=== PATIENT | female | born 2005 | race Caucasian/White ===

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

== ENCOUNTER 2023-09-16 15:56 | Outpatient (RCR) | payer OTHER, SELFPAY ==
--- NOTE | 2023-09-16 17:21 | OPREHPOC ---
Outpatient Therapy Plan of Care This is a Multidisciplinary Plan of Care that may contain components documented by all disciplines (PT, OT, and ST.) PT Problem 1 PT Problem #1 Knowledge Deficit PT Goal 1 Goal Patient to demonstrate independence with HEP Target Visit 4 PT Problem 2 PT Problem #2 Impaired Range of Motion PT Goal 1 Goal 1. Patient to demonstrate 140 deg of R knee flexion to improve ability to sit in the car for prolonged periods 2. Patient to demonstrate 15 deg of R ankle DF to improve ability to ambulate prolonged periods Target Visit 8 PT Problem 3 PT Problem #3 Impaired Strength PT Goal 1 Goal 1. Patient to demonstrate 5/5 R LE strength to improve ability to navigate stairs Target Visit 8 PT Problem 4 PT Problem #4 Impaired Functional Mobil PT Goal 1 Goal 1. Patient to navigate 1 flight of stairs with no increase of R knee pain 2. Patient to demonstrate 10 squats with no presence of R knee valgus Target Visit 8
--- NOTE | 2023-09-16 17:22 | PTOPEVAL1 ---
Assessment and note entered by Yesi Seay DPT Evaluation Information Assessment Status Evaluation Diagnosis R knee pain Onset 09/13/23 Subjective Information Patient reports that in March this year she noticed R knee pain with no injury. She reports pain has come and gone since. She reports that she plays volleyball and softball at [employer] and has pain with activity. She reports pain with stairs, walking long periods of time and sitting in a car for a long period of time. 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 Reported Pain Level Pain Score 6: Self Report Assessment PT Clinical Summary Ms. Balbuena is a 17 year old female who presents to PT with R knee pain. Patient demonstrates decreased R hip strength, decreased R LE flexibiliy and increased pain at the R knee impairing her ability to navigate steps, ambulate prolonged periods of time and sit in a vehicle for prolonged times. She would benefit from skilled PT to address impairments and return to PLOF. Plan of Care Interventions Electrical Stimulation,Gait Training,Hot Pack/Cold Pack,Manual Therapy,Mechanical Traction,Neuro Re- education,Patient/Caregiver Educati,Therapeutic Activities,Therapeutic Exercise PT Services Indicated Yes Treatment Frequency and 2x weekly for 8 visits Duration These treatments will address the objective and functional deficits as defined above. The patient will be advanced safely and appropriately in order for the patient to progress towards his/her prior level of function. Additional exercises will be introduced and as well as a comprehensive home exercise program upon discharge, if needed, ?to ensure carryover of functional gains achieved in the clinic. This treatment plan has been reviewed and agreement upon by the patient.
--- NOTE | 2023-10-11 15:43 | OPREHPOC ---
Outpatient Therapy Plan of Care This is a Multidisciplinary Plan of Care that may contain components documented by all disciplines (PT, OT, and ST.) PT Problem 1 PT Problem #1 Knowledge Deficit PT Goal 1 Goal Patient to demonstrate independence with HEP Target Visit 10 Comment updated PT Problem 2 PT Problem #2 Impaired Range of Motion PT Goal 1 Goal 1. Patient to demonstrate 140 deg of R knee flexion to improve ability to sit in the car for prolonged periods 2. Patient to demonstrate 15 deg of R ankle DF to improve ability to ambulate prolonged periods Target Visit 14 Comment progressing PT Problem 3 PT Problem #3 Impaired Strength PT Goal 1 Goal 1. Patient to demonstrate 5/5 R LE strength to improve ability to navigate stairs Target Visit 14 Comment progressing PT Problem 4 PT Problem #4 Impaired Functional Mobil PT Goal 1 Goal 1. Patient to navigate 1 flight of stairs with no increase of R knee pain 2. Patient to demonstrate 10 squats with no presence of R knee valgus Target Visit 14 Comment progressing
--- NOTE | 2023-10-11 15:43 | PTOPREEVAL ---
Assessment and note entered by Yesi Seay DPT Evaluation Information Assessment Status Re-evaluation Diagnosis R knee pain Onset 09/13/23 Subjective Information Patient reports knee is improved but stairs continue to cause pain. She reports she has not yet been able to return to ADLs at PLOF. Reported Pain Level Pain Score 3: Self Report Assessment PT Clinical Summary Ms. Balbuena has been seen for 8 visits of skilled PT. She does demonstrate improved strength and ROM of the R knee but continues to lack hip abduction strength of the R hip. She demonstrates improved stair navigation but continues to report pain with multiple steps. She would benefit from continued skilled PT to address remaining impairments and return to PLOF. Plan of Care Interventions Electrical Stimulation,Gait Training,Hot Pack/Cold Pack,Manual Therapy,Mechanical Traction,Neuro Re- education,Patient/Caregiver Educati,Therapeutic Activities,Therapeutic Exercise PT Services Indicated Yes Treatment Frequency and continue 2x weekly for 6 visits Duration These treatments will address the objective and functional deficits as defined above. The patient will be advanced safely and appropriately in order for the patient to progress towards his/her prior level of function. Additional exercises will be introduced and as well as a comprehensive home exercise program upon discharge, if needed, ?to ensure carryover of functional gains achieved in the clinic. This treatment plan has been reviewed and agreement upon by the patient.
--- NOTE | 2023-11-10 16:26 | OPREHPOC ---
Outpatient Therapy Plan of Care This is a Multidisciplinary Plan of Care that may contain components documented by all disciplines (PT, OT, and ST.) PT Problem 1 PT Problem #1 Knowledge Deficit PT Goal 1 Goal Patient to demonstrate independence with HEP Target Visit 10 Progress Met Comment . PT Problem 2 PT Problem #2 Impaired Range of Motion PT Goal 1 Goal 1. Patient to demonstrate 140 deg of R knee flexion to improve ability to sit in the car for prolonged periods 2. Patient to demonstrate 15 deg of R ankle DF to improve ability to ambulate prolonged periods Target Visit 14 Progress Met Comment . PT Problem 3 PT Problem #3 Impaired Strength PT Goal 1 Goal 1. Patient to demonstrate 5/5 R LE strength to improve ability to navigate stairs Target Visit 14 Progress Met Comment . PT Problem 4 PT Problem #4 Impaired Functional Mobil PT Goal 1 Goal 1. Patient to navigate 1 flight of stairs with no increase of R knee pain 2. Patient to demonstrate 10 squats with no presence of R knee valgus Target Visit 14 Progress Not Met Comment .
--- NOTE | 2023-11-10 16:26 | PTOPDC ---
Assessment and note entered by Yesi Seay DPT Evaluation Information Assessment Status Re-evaluation Diagnosis R knee pain Onset 09/13/23 Subjective Information Patient reports that knee has improved. She reports running has improved but stairs cause some discomfort. Pain below the knee has resolved but she has discomfort at distal quad. Reported Pain Level Pain Score 0: Self Report Assessment PT Clinical Summary Ms. Balbuena was seen for 14 visits of skilled PT with great progress towards goals. She met all goals except for stair navigation and squatting with knee valgus. She demonstrates 0-140 deg of R knee AROM as well as 5/5 strength of the R knee. She is independent with HEP and is appropriate for DC at this time. Plan of Care PT Services Indicated No
== END 2023-11-10 16:37 | disposition home or self-care (01) ==
LOC: CHSPT 15:56
PROVIDERS: PCP Family Medicine; Visit Provider Orthopaedic Surgery
DX: M70.51 Other bursitis of knee, right knee (principal)
CPT/HCPCS: 97014; 97110; 97140; 97161; G0283

== ENCOUNTER 2024-02-17 07:52 | Outpatient (CLI) | payer OTHER, SELFPAY ==
--- NOTE | ~2024-02-17 | MR_ITS ---
EXAMINATION: MR knee RT wo con DATE: 02/17/2024 09:11 INDICATION: Right knee pain TECHNIQUE: Magnetic resonance imaging (MRI) of the right knee was performed without intravenous contr ast. Sequences included coronal PD-weighted FSE, coronal PD-weighted FS FSE, sagittal T2-weighted FS E, sagittal PD-weighted FS FSE and axial PD weighted fat saturated FSE. COMPARISON: None. FINDINGS: Medial compartment: Medial meniscus is normal. Articular cartilage is normal. Lateral compartment: Lateral meniscus is normal. Articular cartilage is normal. Patellofemoral compartment: Deep chondral fissuring with minimal underlying subarticular edema-like signal change at the lateral patellar facet. Trochlear cartilage is normal. Ligaments and tendons: Anterior and posterior cruciate ligaments are normal. The medial collateral ligament and fibular melinda ateral ligament complex are normal. The extensor mechanism is normal. The visualized medial and later al hamstring tendons as well as the iliotibial band are normal. Fluid: Physiologic amount of fluid in the joint space. No loose osteochondral bodies identified. Mild prepat ellar edema without discrete bursal fluid collection. Osseous/other: Bone alignment is normal. No fracture or pathologic marrow replacing process. There is curvilinear lo w signal intensity in the subcutaneous fat at the anteromedial aspect of the knee which suggests resi dual scarring likely at the site of a prior described subcutaneous seroma and suspected Burrell Jc e lesion based on report from the prior imaging, images of which are unavailable at [facility]. IMPRESSION: 1. Deep chondral fissuring at the lateral patellar facet. Reviewed, dictated and finalized at location A.
== END 2024-02-17 07:53 | disposition home or self-care (01) ==
LOC: CHSIMG 07:54
PROVIDERS: PCP Family Medicine; Visit Provider Orthopaedic Surgery
DX: M70.51 Other bursitis of knee, right knee (principal); M25.561 Pain in right knee
CPT/HCPCS: 73721

== ENCOUNTER 2024-02-28 08:43 | Outpatient (CLI) | payer OTHER, SELFPAY | END 2024-02-28 08:44 | disposition home or self-care (01) | LOC: CHSIMG 08:45 | PROVIDERS: PCP Family Medicine; Visit Provider Orthopaedic Surgery | DX: M25.561 Pain in right knee (principal) | CPT/HCPCS: 73564 ==

== ENCOUNTER 2024-10-30 08:12 | Outpatient (CLI) | payer OTHER, SELFPAY ==
--- NOTE | ~2024-10-30 | XR_ITS ---
XR elbow RT min 3V Ordering provider: Darío Coreas MD History: . RT ELBOW PAIN,CHRONIC-WORSENING,4-5TH NUMBNESS,PAIN . Comparison: None. FINDINGS: BONES: No acute fracture or dislocation. JOINT SPACES: Normal. SOFT TISSUES: Unremarkable. No definite joint effusion. IMPRESSION: No acute osseous abnormality of the right elbow. Reviewed, dictated and finalized at location A. REGULATOR
--- OUTSIDE RECORDS SUMMARY | 2024-11-05 04:49 | XMS_ITS | Patient Health Summary ---
Author Organization [facility] Address [address] [facility] [place] [address] Care Team Providers Care Site Specialist Name Role Phone Rufina Pike MD Primary Care Provider [phone] Note from [facility],non-owned Affiliates and Associated Physician Practices is amultiple site organization consisting of ambulatory clinics and hospital sitesin [place], [place], [place] and [place]. This disclosure is being madepursuant to the Care Everywhere program and may not contain all information available regarding this patient. Last updated 18.[facility] Social History Tobacco Use Types Packs/Day Years Used Date Smoking Tobacco: Never Assessed Sex and Gender Information Value Date Recorded Sex Assigned at Not on file Gender Identity Not on file Sexual Orientation Not on file Care Teams Site Specialist Relationship Specialty Start Date End Date Rufina Pike MD [address] [facility] [address] [place] [address] PCP - General Pediatrics 06/05/15
--- OUTSIDE RECORDS SUMMARY | 2024-11-05 04:49 | XMS_ITS | Encounter Summary ---
Author Organization [facility] Address [address] [place] [address] Care Team Providers Care Light Industrial Supervisor Name Role Phone Rufina Pike MD Primary Care Provider [phone] Encounter Details Date Type Department Care Team (Late st Contact Info) Description 03/27/[address] [facility] [address] [facility] [address] Rohan Kruger MD NO ADDRESS ON FILE Social History Tobacco Use Types Packs/Day Years Used Date Smoking Tobacco: Never Assessed Sex and Gender Information Value Date Recorded Sex Assigned at Not on file Gender Identity Not on file Sexual Orientation Not on file documented as of this encounter Plan of Treatment Not on file documented as of this encounter Visit Diagnoses Not on filedocumented in this encounter Care Teams Light Industrial Supervisor Relationship Specialty Start Date End Date Rufina Pike MD [address] [facility] [facility] [address] [place] [address] PCP - General Pediatrics 02/26/11 documented as of this encounter
--- OUTSIDE RECORDS SUMMARY | 2024-11-05 04:49 | XMS_ITS | Clinical Summary ---
Author Organization [facility] Address [address] [place] [address] Phone Care Team Providers Care Bone Puller Name Role Phone Rufina Pike MD Primary Care Provider [phone] Allergies No known active allergies Medications No known medications Active Problems Problem Noted Date Diagnosed Date Unspecified disorder of skin and subcutaneous ti ssue 03/10/2011 Social History Tobacco Use Types Packs/Day Years Used Date Smoking Tobacco: Never Assessed Adolescent Education Answer Date Record ed Getting School Help Needed Not on file 06/18 Sex and Gender Information Value Date Recorded Sex Assigned at Not on file Gender Identity Not on file Sexual Orientation Not on file Last Filed Vital Signs Vital Sign Reading Time Taken Comments Blood Pressure 108/56 03/17/2011 9:08 AM CDT Pulse 87 03/17/2011 9:08 AM CDT Temperature - - Respiratory Rate 21 03/17/2011 9:08 AM CDT Oxygen Saturation 98% 03/17/2011 9:08 AM CDT Inhaled Oxygen Concentration - - Weight 29 kg (64 lb) 03/12/2011 12:39 PM CDT Height 134.6 cm (4' 5 ) 03/12/2011 12:39 PM CDT Body Mass Index 16.02 03/12/2011 12:39 PM CDT Plan of Treatment Health Maintenance Due Date Last Done Comments CHLAMYDIA SCREENING (ANNUAL) 11-24 YEARS 2014 HPV VACCINES (1 - 3-dose series) 2018 DTAP/TDAP/TD VACCINES (1 - Tdap) 2022 HEPATITIS B VACCINES (1 of 3 - 19+ 3-dose series) 2022 INFLUENZA VACCINE (#1) 2024 PNEUMOCOCCAL VACCINE 0-64 YEARS Aged Out No longer eligible based on patient's age to complete this topic Advance Directives For more information, please contact: [phone] * Full Code (Latest Code Status on File) Date Activated Date Inactivated Comments 03/17/2011 9:00 AM 03/17/2011 11:10 AM * Full Code Date Activated Date Inactivated Comments 03/17/2011 8:22 AM 03/17/2011 9:00 AM Care Teams Bone Puller Relationship Specialty Start Date End Date Rufina Pike MD [address] [place] [address] PCP - General Pediatrics 02/26/11
--- OUTSIDE RECORDS SUMMARY | 2024-11-05 04:49 | XMS_ITS | Clinical Summary ---
Author Organization [facility] Address [address] [place] [address] Care Team Providers Care Physician Practice Coordinator Name Role Phone Rufina Pike MD Primary Care Provider [phone] Source Comments [facility],non-owned Affiliates and Associated Physician Practices is amultiple site organization consisting of ambulatory clinics and hospital sitesin [place], [place], [place] and [place]. This disclosure is being madepursuant to the Care Everywhere program and may not contain all information available regarding this patient. Last updated 18.[facility] Social History Tobacco Use Types Packs/Day Years Used Date Smoking Tobacco: Never Assessed Sex and Gender Information Value Date Recorded Sex Assigned at Not on file Gender Identity Not on file Sexual Orientation Not on file Plan of Treatment Health Maintenance Due Date Last Done Comments HIV SCREENING 2018 HPV VACCINE (1 - 3-dose series) 2018 CHLAMYDIA/GONORRHEA SCREENING 2019 HEPATITIS C SCREENING 11/09/2021 DTAP/TDAP/TD VACCINES (1 - Tdap) 2022 HEPATITIS B VACCINE (1 of 3 - 19+ 3-dose series) 2022 DEPRESSION SCREENING 11/15/2023 COVID-19 VACCINE (1 - 2023-2 5 season) 2024 INFLUENZA VACCINE (#1) 2024 ZOSTER VACCINE (1 of 2) 2053 HIB VACCINE Aged Out No longer eligi ble based on patient's age to complete this topic MENINGOCOCCAL VACCINE Aged Out No theresa darryl eligible based on patient's age to complete this topic PNEUMOCOCCAL VACCINE Aged Out No long er eligible based on patient's age to complete this topic Care Teams Physician Practice Coordinator Relationship Specialty Start Date End Date Rufina Pike MD [address] [facility] [address] [place] [address] PCP - General Pediatrics 06/05/15
--- OUTSIDE RECORDS SUMMARY | 2024-11-05 04:49 | XMS_ITS | Patient Health Record ---
Author Organization [facility] Address [address] [place], [place] [address] Care Team Providers Care Cryptanalyst Name Role Phone SONI WEST Unavailable [phone] Gordon Gonzalez Unavailable Unavailable TAYLA YI Unavailable [phone] Allergies No Known Allergies Reason For Referral No Information Medications Medication SIG (Take, Route, Frequency, Duration) Notes Start Date End Date Status Imiquimod 5 % 1 application at bedtime, leave on for 8 hours then wash off Externally Three times a Week please dispense 6 packets 05/04/2024 Active Vital Signs Height-cm 167.64 cm 05/25/2024 Weight-kg 72.57 kg 05/25/2024 Height 66.00 in 05/25/2024 Weight 160 lbs 05/25/2024 BMI 25.82 kg/m2 05/25/2024 Encounters Encounter Location Date Provider Diagnosis [facility] [address] [place], [place] [id number] 05/04/2024 TAYLA YI Plantar wart B07.0 ; Pain in left foot M79.672 ; Localized edema R60.0 and Primary focal hyperhidrosis, 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 I discussed various treatment plans and answered questions. I explained that verruca treatments often require multiple treatments. Today lesions were prepped, debrided down to bleeding base with #15 blade, and then chemical cauterization solution application for the first time. Rx imiquimod. 05/04/2024 Pain in left foot (ICD-10 - M79.672) 05/25/2024 Plantar wart (ICD-10 - B07.0) no longer indicated use of imiquimod, monitor area for any changes or recurrence 05/25/2024 Pain in left foot (ICD-10 - M79.672) 05/25/2024 Localized edema (ICD-10 - R60.0) 05/04/2024 Localized edema (ICD-10 - R60.0) 05/04/2024 Primary focal hyperhidrosis, soles (ICD-10 - L74.513) Patient educated on etiology and possible outcomes related to hyperhidrosis of feet. Reviewed treatment options with patient, encouraged to begin with black tea soaks to help down regulate sweat glands in feet and aid in moisture control. 05/25/2024 Primary focal hyperhidrosis, soles (ICD-10 - L74.513) Patient educated on etiology and possible outcomes related to hyperhidrosis of feet. Reviewed treatment options with patient, encouraged to begin with black tea soaks to help down regulate sweat glands in feet and aid in moisture control. Plan Of Treatment No Information Insurance Providers Payer Name Payer Address Payer Phone Subscriber Number Group Number Insured Name Patient Relationship to Insured Coverage Start Date Coverage End Date [facility] [address] [address] [place] [address] [id number] DARRELL HDEZ Child - Insured has Financial Responsibility
--- OUTSIDE RECORDS SUMMARY | 2024-11-05 04:49 | XMS_ITS | Referral Summary ---
Author Organization [facility] Address [address] [facility] [place] [address] Care Team Providers Care Director Of Marketing And Promotions Name Role Phone Rufina Pike MD Primary Care Provider [phone] Source Comments [facility],non-owned Affiliates and Associated Physician Practices is amultiple site organization consisting of ambulatory clinics and hospital sitesin [place], [place], [place] and [place]. This disclosure is being madepursuant to the Care Everywhere program and may not contain all information available regarding this patient. Last updated 18.[facility] Social History Tobacco Use Types Packs/Day Years Used Date Smoking Tobacco: Never Assessed Sex and Gender Information Value Date Recorded Sex Assigned at Not on file Gender Identity Not on file Sexual Orientation Not on file Plan of Treatment Not on file Care Teams Director Of Marketing And Promotions Relationship Specialty Start Date End Date Rufina Pike MD [address] [facility] [address] [place] [address] PCP - General Pediatrics 06/05/15
--- OUTSIDE RECORDS SUMMARY | 2024-11-05 04:49 | XMS_ITS ---
Author Organization [facility] Address [address] [place], [place] [address] Care Team Providers Care Personal Injury Paralegal Name Role Phone SONI WEST Unavailable [phone] Gordon Gonzalez Unavailable Unavailable TAYLA YI Unavailable [phone] REASON FOR VISIT plantar wart lf sub 4th wart rx imiquimod Medications Medication SIG (Take, Route, Frequency, Duration) Notes Start Date End Date Status Imiquimod 5 % 1 application at bedtime, leave on for 8 hours then wash off Externally Three times a Week please dispense 6 packets 05/04/2024 Active Encounters Encounter Location Date Provider Diagnosis [facility] [address] [place], [place] [id number] 05/04/2024 TAYLA YI Plantar wart B07.0 ; [...] Pain in left foot (ICD-10 - M79.672) 05/04/2024 Localized edema (ICD-10 - R60.0) 05/04/2024 Primary focal hyperhidrosis, soles (ICD-10 - L74.513) Patient educated on etiology and possible outcomes related to hyperhidrosis of feet. Reviewed treatment options with patient, encouraged to begin with black tea soaks to help down regulate sweat glands in feet and aid in moisture control. Plan Of Treatment Medication Medication Name Sig Start Date Stop Date Notes Imiquimod 5 % 1 application at bed time, leave on for 8 hours then wash off Externally Three times a Week 05/04/2024 Treatment Notes Assessment Notes Plantar wart I educated the patie nt on verruca. I discussed various treatment plans and answered questions. I explained that verruca treatments often require multiple treatments. Today lesions were prepped, debrided down to bleeding base with #15 blade, and then chemical cauterization solution application for the first time. Rx imiquimod. Primary focal hyperhidrosis, soles Patie nt educated on etiology and possible outcomes related to hyperhidrosis of feet. Reviewed treatment options with patient, encouraged to begin with black tea soaks to help down regulate sweat glands in feet and aid in moisture control. Next Appt Details Follow Up: 2 Weeks, Reason: Progress Notes * MURALI HDEZOB:2004 (18 yo F)Acc No.[id number]:05/04/2024 Progress Notes Patient:LYDIA EWING Provider:FOZIA YI :2005???Age:18 Y???Sex:Female D ate:05/04/2024 Address:[address] [place] [address] Subjective: * Chief Complaints: * ???1. Plantar wart lf sub 4t h wart rx imiquimod. * HPI: ???HPI:?New Complaint?Patient presents for a new patient consultation. Patient states she has plantar wart on the bottom of her left foot, below? her 4th digit. Patient says she has had the re-curring wart for 9 years, and has had it frozen off in the past, but the wart has continued to return and is causing pain while applying pressure and wearing shoes. Patient denies any swelling or redness are the area. MA:mls.? * ROS:?General / Constitutional:?Patient denies?weakness.?Cardiovascular:?Patient denies?chest pain, history of OK, irregular heartbeat.?Musculoskeletal:?Patient denies?arthritis, joint stiffness.?Skin:?Patient complains of?warts.?Neurologic:?Patient denies?dizziness, gait abnormality, headache.? * Medical History:? Objective: * Examination: ???Physical Examination: ???Vascular: Dorsalis Pedis pulse 2/4 left foot Posterior Tibial pulse 2/4 left foot Dorsalis Pedis pulse 2/4 right foot Posterior Tibial pulse 2/4 right foot, Capillary Refill Time is noted to be less than 3 secs to ten digits, temperature gradient is warm to cool to bilateral lower extremity and pedal hair present, there are no varicosities noted to bilateral lower extremity ?Dermatologic: no open lesions, no erythema, no ecchymoses, nails cut to hygienic length, wart-like lesion noted to left foot sub fourth metatarsal head with pinpoint bleeding upon debridement as well as loss of relaxed skin tension lines ?Musculoskeletal: no pain to palpation nail plate x ten, no calf pain noted to bilateral lower extremity, arch height 3/5 non weight bearing to bilateral foot, first metatarsophalangeal joint range of motion noted to be 30 degree non weight bearing to bilateral foot, maximal tenderness to sub fourth metatarsal head left foot plantar forefoot wart like lesion with lateral compression ?Neurologic: protective sensation intact to light touch, vibratory sensation intact to first metatarsophalangeal joint bilateral foot. Assessment: * Assessment: 1.?Plantar wart - B07.0 (Mabel anastasiya)?2.?Pain in left foot - M79.672?3.?Localized edema - R60.0?4.?Primary focal hyperhidrosis, soles - L74.513? Plan: * Treatment: 2.?Primary focal hyperhidros is, soles? Notes: Patient educated on etiology and possible outcomes related to hyperhidrosis of feet. Reviewed treatment options with patient, encouraged to begin with black tea soaks to help down regulate sweat glands in feet and aid in moisture control. ?? 3.?Others? Start Imiquimod Cream, 5 %, 1 application at bedtime, leave on for 8 hours then wash off, Externally, Three times a Week please dispense 6 packets, 1, Refills 2.?? * Procedure Codes:?01117 DESTR UCT LESION, 1-14 * Follow Up:?2 Weeks * Billing Information: * Visit Code:? 38638 Office Visit, New Pt., Level 3. Modifiers: 25 * Procedure Codes:? 86738 DESTRUCT LESION, 1-14. * Sign off status: Completed true * Provider:FOZIA YI Date:?05/04/2024 Generated for Hawa peralta/Hernandez/Porter on:?11/05/2024 04:49 AM FRONT DESK REPRESENTATIVE History and Physical Notes * HPI (History of Present Illness) Category Sub-Category Detail Notes Category Not es HPI New Complaint Patient presents for a new patient consultation. Patient states she has plantar wart on the bottom of her left foot, below her 4th digit. Patient says she has had the re-curring wart for 9 years, and has had it frozen off in the past, but the wart has continued to return and is causing pain while applying pressure and wearing shoes. Patient denies any swelling or redness are the area. MA:mls Examination Category Sub-Category Detail Notes Category Not es Physical Examination Vascular: Dorsalis Pedis pulse 2/4 left foot Posterior Tibial pulse 2/4 left foot Dorsalis Pedis pulse 2/4 right foot Posterior Tibial pulse 2/4 right foot, Capillary Refill Time is noted to be less than 3 secs to ten digits, temperature gradient is warm to cool to bilateral lower extremity and pedal hair present, there are no varicosities noted to bilateral lower extremity Dermatologic: no open lesions, no erythema, no ecchymoses, nails cut to hygienic length, wart-like lesion noted to left foot sub fourth metatarsal head with pinpoint bleeding upon debridement as well as loss of relaxed skin tension lines Musculoskeletal: no pain to palpation nail plate x ten, no calf pain noted to bilateral lower extremity, arch height 3/5 non weight bearing to bilateral foot, first metatarsophalangeal joint range of motion noted to be 30 degree non weight bearing to bilateral foot, maximal tenderness to sub fourth metatarsal head left foot plantar forefoot wart like lesion with lateral compression Neurologic: protective sensation intact to light touch, vibratory sensation intact to first metatarsophalangeal joint bilateral foot
--- OUTSIDE RECORDS SUMMARY | 2024-11-05 04:49 | XMS_ITS ---
Author Organization [facility] Address [address] [place], [place] [address] Care Team Providers Care Fabricator Assembler Metal Products Name Role Phone SONI WEST Unavailable [phone] CarlosGordon Unavailable Unavailable TAYLA YI Unavailable [phone] Allergies No Known Allergies REASON FOR VISIT wart follow up Medications Medication SIG (Take, Route, Frequency, Duration) Notes Start Date End Date Status Imiquimod 5 % 1 application at bedtime, leave on for 8 hours then wash off Externally Three times a Week please dispense 6 packets 05/04/2024 Active Vital Signs Weight 160 lbs 05/25/2024 Weight-kg 72.57 kg 05/25/2024 Height 66.00 in 05/25/2024 Height-cm 167.64 cm 05/25/2024 BMI 25.82 kg/m2 05/25/2024 Encounters Encounter Location Date Provider Diagnosis [address] [id number] 05/25/2024 TAYLA YI Plantar wart B07.0 ; Pain in left foot M79.672 ; Localized edema R60.0 and Primary focal hyperhidrosis, 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 Reviewed treatment options with patient, encouraged to begin with black tea soaks to help down regulate sweat glands in feet and aid in moisture control. Plan Of Treatment Treatment Notes Assessment Notes Plantar wart no longer indicated use of imiquimod, monitor area for any changes or recurrence Primary focal hyperhidrosis, soles Patie nt educated on etiology and possible outcomes related to hyperhidrosis of feet. Reviewed treatment options with patient, encouraged to begin with black tea soaks to help down regulate sweat glands in feet and aid in moisture control. Next Appt Details Follow Up: prn, Reason: Progress Notes * FRANK HDEZHDOB:2004 (18 yo F)Acc No.[id number]:05/25/2024 Patient:?LEMUEL LYDIA Provider:?TAYLA YI :2005???Age:18 Y???Sex:Female D ate:05/25/2024 Address:[address] [place] [address] Subjective: * Chief Complaints: * ???1. Wart follow up. * HPI: ???HPI:?Follow Up Visit?Patient presents for follow up visit for plantar wart on her bottom left foot. Patient states she is not having any pain or concerns, she is having skin peeling still but states it seems to improving. MA:mls.? * ROS:?General / Constitutional:?Patient denies?weakness.?Cardiovascular:?Patient denies?chest pain, history of DC, irregular heartbeat.?Musculoskeletal:?Patient denies?arthritis, joint stiffness.?Skin:?Patient complains of?warts.?Neurologic:?Patient denies?dizziness, gait abnormality, headache.? * Medical History:? * Medications:?Taking Imiquimo d 5 % Cream 1 application at bedtime, leave on for 8 hours then wash off Externally Three times a Week please dispense 6 packets * Allergies:?N.K.D.A. Objective: * Vitals:?Wt:160lbs, Wt-k .57 kg, Ht: 66.00 in, Ht-cm: 167.64 cm, BMI:25.82Index, Body Surface Area: 1.84. * Examination: ???Physical Examination: ???Vascular: Dorsalis Pedis [...] to left foot sub fourth metatarsal head improved from prior encounter ?Musculoskeletal: no pain to palpation nail plate x ten, no calf pain noted to bilateral lower extremity, arch height 3/5 non weight bearing to bilateral foot, first metatarsophalangeal joint range of motion noted to be 30 degree non weight bearing to bilateral foot, no pain in area of prior wart like lesion sub fourth metatarsal head left foot plantar forefoot with lateral compression ?Neurologic: protective sensation intact [...] feet and aid in moisture control. ?? * Follow Up:?prn * Billing Information: * Visit Code:? 64401 Office Visit, Est Pt., Level 3. * Procedure Codes:? * Sign off status: Completed true * Provider:FOZIA YI Date:?05/25/2024 Generated for Hawa peralta/Hernandez/Porter on:?11/05/2024 04:49 AM ROD POINTER History and Physical Notes * HPI (History of Present Illness) Category Sub-Category Detail Notes Category Not es HPI Follow Up Visit Patient presents for follow up visit for plantar wart on her bottom left foot. Patient states she is not having any pain or concerns, she is having skin peeling still but states it seems to improving. MA:mls Examination Category Sub-Category Detail Notes Category [...] to left foot sub fourth metatarsal head improved from prior encounter Musculoskeletal: no pain to palpation nail plate x ten, no calf pain noted to bilateral lower extremity, arch height 3/5 non weight bearing to bilateral foot, first metatarsophalangeal joint range of motion noted to be 30 degree non weight bearing to bilateral foot, no pain in area of prior wart like lesion sub fourth metatarsal head left foot plantar forefoot with lateral compression Neurologic: protective sensation intact to light touch, vibratory sensation intact to first metatarsophalangeal joint bilateral foot
--- OUTSIDE RECORDS SUMMARY | 2024-11-05 04:50 | XMS_ITS | Encounter Summary ---
Author Organization [facility] Address [address] [place] [address] Care Team Providers Care Block Stacker Name Role Phone Rufina Pike MD Primary Care Provider [phone] Reason for Visit * Auth/Cert - Closed Specialty Diagnoses / Procedures Referred By Amanda davidson Referred To Contact General Surgery Diagnoses SUBCUTANEOUS MASS LEFT FACE Procedures MINOR PROCEDURES [facility] [place] [address] [place] [address] Referral ID Status Reason Start Date Expiration Date Visits Re quested Visits Authorized [id number] Closed 03/11/2011 09/07/2011 1 Encounter Details Date Type Department Care Team (Late st Contact Info) Description 03/17/2011 9:40 AM CDT - 03/17/2011 10:20 AM CDT Surgery [facility] Operating Room [address] [place] [address] Ethan Marroquin MD NO ADDRESS ON FILE RETIRED LOCAL HEAD FACE NECK CYST MASS LESION EXCISION Surgery Details Date/Time Status Location OR Service Patient Class Case Class Case Type Trauma Case? 03/17/2011 9:40 AM Posted [facility] OR MAIN MP1-O Plastic Surgery Surgical OP/Extended Care Elective No Panel 1 Procedure LRB Anes Op Region Wound Class Comments RETIRED LOCAL HEAD FACE NECK CYST MASS LESION EXCISION N/A Local Not Applicable EXCISION BIOPSY SUBCUTANECOUS MASS LEFT FACE Surgeon Surgeon Role Service Panel Ethan Marroquin MD Primary Plastic Surgery 1 documented in this encounter Social History Tobacco Use Types Packs/Day Years Used Date Smoking Tobacco: Never Assessed Sex and Gender Information Value Date Recorded Sex Assigned at Not on file Gender Identity Not on file Sexual Orientation Not on file documented as of this encounter Last Filed Vital Signs Vital Sign Reading [...] Mass Index 16.02 03/12/2011 12:39 PM CDT Body Mass Index Percentile 60.43% 03/12/2011 12: 39 PM CDT Growth Chart: [facility] (Girls, 2- 20 Years) documented in this encounter Discharge Instructions * Discharge Instructions* Ethan Marroquin MD - 03/17/2011 9:00 AM CDT 1. Follow-up Dr. Marroquin's office ([phone]) as needed. 2. Do NOT remove dressing or wash surgical site until Wednesday evening, March 22. Then remove steri-strip and resume normal washing. 3. No body contact activities until 3 weeks after surgery. 4. Avoid excess sun on incision site. 5. Notify Dr. Marroquin's office ([phone]) if scar begins to thicken and raise above the surface or any other concerns about the surgical site. documented in this encounter Progress Notes * Stl Scanning, [facility] - 03/17/2011 4:07 PM CDT documented in this encounter H&P Notes * Stl Scanning, [facility] - 03/17/2011 4:07 PM CDT documented in this encounter OR Notes * Gloria-OP - Yelena Bellamy RN - 03/17/2011 9:09 AM CDT Patient was discharged ambulatory in stable condition. Discharge instructions from physician reviewed with patient's mother prior to discharge and copy provided. 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 The previously placed EMLA cream was removed and the left forehead/restorationist was prepped and draped. The lesion clinically was a probable pilomatrixoma, measuring 3mm X 3 mm. It was marked for lenticular excision of skin overlying the mass. The perimeter was infiltrated with 0.8 ml of 0.25% Marcaine with 1/200,000 epinephrine. After vasoconstriction had developed, the skin was incised and the lesion was dissected from the subcutaneous tissue: it did not extend into significant anatomic structures. The specimen was removed in its entirety and sent for permanent pathology. H emostasis was secured with electrocautery. The wound was closed in several layers with 6-0 PDS suture in the subcutaneous tissue and deep dermis and with 6-0 fast gut suture for skin. The incision length was 10mm. The closed incision was dressed with Steri-strip and Mastisol. The patient tolerated the procedure well and was discharged home in good condition. There was no complication or transfusion. I personally performed this operation. * Gloria-OP - Vera Arellano RN - 03/17/2011 8:51 AM CDT 0.25% Sensorcaine with epinephrine 1:200,000 0.8 Ml injected locally per M.D. Normal saline for irrigation Sutured: 6-0 fast absorbing and 6-0 maxon Dressings: steritrips-mastisol * Gloria-OP - Yelena Bellamy RN - 03/17/2011 8:24 AM CDT Emla applied to operative site at 0812 per Meghann Duong RN. documented in this encounter Miscellaneous Notes * Scanned Form - Stl Scanning, [facility] - 03/20/2011 10:15 AM CDT * Scanned Form - Stl Scanning, [facility] - 03/17/2011 4:07 PM CDT * Scanned Form - Stl Scanning, [facility] - 03/17/2011 4:07 PM CDT * Patient Instructions - Stl Scanning, [facility] - 03/17/2011 4:07 PM CDT documented in this encounter Plan of Treatment Not on file documented as of this encounter Procedures Procedure Name Priority Date/Time Associated Diagnosis Comments PATHOLOGY Routine 03/17/2011 10:54 AM CDT RETIRED LOCAL HEAD FACE NECK CYST MASS LESION EXCISION 03/17/2011 9:40 AM CDT SUBCUTANEOUS MASS LEFT FACE documented in this encounter Results * PATHOLOGY (03/17/2011 10:54 AM CDT) SURGICAL PATHOLOGY ?[facility] ?[address] ? [place], [place] ??[address] ? Patient: ??LEMUEL, LYDIA ? : ??2005 ? Procedure Date: ??03/17/2011 ? Accession Date: ??03/17/2011 ? Case No: ??[id number] ? Ordering Dr: ??ETHAN MARROQUIN ? Case type SW is performed by [facility], [address] [place] [address], ? [place], [place] ??[address]; all other case types are performed by [facility] ? [facility], [address], [place], [place] ??[address] ?SURGICAL PATHOLOGY & NON-GYNECOLOGIC CYTOPATHOLOGY REPORT ? DIAGNOSIS ? SKIN, LEFT FACE, EXCISION: ? - PILOMATRICOMA. ? Specimen Description: ? Pilomatrixoma left face. ? Operative Procedure: ? Focal cyst lesion excision. ? Patient Information/Histor y/Diagnosis: ? Pilomatrixoma left face. ? Gross: ? Received in a single container labeled Lydia Balbuena, pilomatrixoma ? left face, is a skin ellipse measuring 0.3 x 0.2 cm. A 0.4-cm white nodule ? is subjacent. The specimen is longitudinally bisected and completely ? submitted labeled A1. ? DJG/PJS 03.17.2011 11:23 am ? Microscopic: ? Received are slides labeled [id number], Lydia Balbuena. ? Sections of left face identify a circumscribed mass composed of sheets of ? basaloid cells remarkable for abrupt keratinization. Sheets of ghost ? cells are present, and there is a marked foreign-body reaction to ? extravasated keratin. There is stromal fibrosis as well as foci of ? dystrophic calcification. The overlying epidermis is unremarkable. ? PJC/PHC 03.18.2011 12:08 pm ? Staging Form: ? No. ? [employer]LECTRONIC SIGNATURE FOR JUSTICE VILLEGAS M.D.- 03/18/11 12:09 pm [facility] 03/17/2011 10:5 4 AM CDT Ethan Marroquin MD PATHOLOGY/CYTOLOGY O HERMINIAERABERENICE [facility] CLIA# [id number] [address], [place] [address] documented in this encounter Visit Diagnoses Not on filedocumented in this encounter Active and Recently Administered Medications Care Teams Block Stacker Relationship Specialty Start Date End Date Rufina Pike MD [address] [place] [phone] PCP - General Pediatrics 02/26/11 documented as of this encounter
--- OUTSIDE RECORDS SUMMARY | 2024-11-05 04:50 | XMS_ITS | Encounter Summary ---
Author Organization [facility] Address [address] [place] [address] Care Team Providers Care Practice Assistant Name Role Phone Rufina Pike MD Primary Care Provider [phone] Reason for Visit * Reason Comments Advice Only cyst on head Encounter Details Date Type Department Care Team (Late st Contact Info) Description 03/10/2011 11:00 AM CDT Office Visit [facility] Plastic Surgery [address] [facility] [phone] Ethan Marroquin MD NO ADDRESS ON FILE Unspecified disorder of skin and subcutaneous tissue (Primary Dx) Social History Tobacco Use Types Packs/Day Years Used Date Smoking Tobacco: Never Assessed Sex and Gender Information Value Date Recorded Sex Assigned at Not on file Gender Identity Not on file Sexual Orientation Not on file documented as of this encounter Last Filed Vital Signs Vital Sign Reading Time Taken Comments Blood Pressure - - Pulse - - Temperature - - Respiratory Rate - - Oxygen Saturation - - Inhaled Oxygen Concentration - - Weight 29.1 kg (64 lb 3.2 oz) 1 10:18 AM CDT Height 125.7 cm (4' 1.5 ) 03/10/2011 10 :18 AM CDT Body Mass Index 18.42 03/10/2011 10:18 AM CDT Body Mass Index Percentile 89.25% 03/10 10:18 AM CDT Growth Chart: [facility] (Girls, 2- 20 Years) documented in this encounter Progress Notes * Ethan Marroquin MD - 03/10/2011 10:46 AM CDT This patient is referred by Dr. Pike for consultation regarding a left face mass. Chief Complaint: Aisha is a 5 y.o. female, accompanied by her mother, who is seen for a subcutaneous mass of the face. HPI: The left face lesion was not present at . It appeared about 3-4 months ago. Since then, it has been increasing in size slowly. It has not caused any impairment of function. It is tender when touched or bumped. It has not ulcerated, bled or been infected. There has not been any treatment. ROS: No outpatient prescriptions have been marked as taking for the 03/10/11 encounter (Office Visit) with ETHAN MARROQUIN. She has no known allergies. data: 36 week. All additional items on the pediatric problem list, completed by mother, are negative except: hospitalization at 6 months of age for pneumonia with chest tube complicated by right leg blood clot without sequelae. PE: On examination, she is healthy appearing with age-appropriate affect. face: The lesion appears to be an inclusion cyst or a pilomatrixoma of the left scientology. It [id number] X 3mm, is well defined and without inflammation. It is fixed to the skin and is not fixed to deep structures. It is amenable to excision with primary closure. Imp: Subcutaneous mass of unknown biological nature of the face. Plan: Because of the history, physical exam and location, I recommend excisional biopsy of the massas an outpatient under local anesthesia due to Isabelles age and emotional maturity. I have discussed the risks and complications of surgery with mother, among which are reaction to anesthesia, excessive bleeding,infection, unsightly scar - including baldness if on the scalp, and permanent deformity. The mother understands that the specimen will be sent for pathology and if there were atypical or malignant cells, additional treatment might be necessary. I have also discussed the option of observation. Nicolás mother understands and wishes to proceed with surgery. Follow-up: as needed. Total time of visit: 20 minutes. Counseling and Coordination of Care: 15 minutes. documented in this encounter Plan of Treatment Not on file documented as of this encounter Visit Diagnoses Diagnosis Unspecified disorder of skin and subcutaneous tissue- Primary documented in this encounter Care Teams Practice Assistant Relationship Specialty Start Date End Date Rufina Pike MD [address] [place] [phone] PCP - General Pediatrics 02/26/11 documented as of this encounter
--- OUTSIDE RECORDS SUMMARY | 2024-11-05 04:50 | XMS_ITS | Encounter Summary ---
Author Organization [facility] Address [address] [place] [address] Care Team Providers Care Exceptional Children Teacher Name Role Phone Rufina Pike MD Primary Care Provider [phone] Reason for Visit * Auth/Cert - Closed Specialty Diagnoses / Procedures Referred By Amanda davidson Referred To Contact General Surgery Diagnoses SUBCUTANEOUS MASS LEFT FACE Procedures MINOR PROCEDURES [facility] Or [address] [place] [address] Referral ID Status Reason Start Date Expiration Date Visits Re quested Visits Authorized [id number] Closed 03/11/2011 09/07/2011 1 Encounter Details Date Type Department Care Team (Latest Contact Info) Description 03/17/2011 7:58 AM CDT - 03/17/2011 9:10 AM CDT Hospital Encounter [facility] [address] [place] [address] Ethan Marroquin MD NO ADDRESS ON FILE Discharge Disposition: Home or Self Care Social History Tobacco Use Types Packs/Day Years [...] 03/12/2011 12: 39 PM CDT Growth Chart: [facility] (Girls, 2- 20 Years) documented in this encounter Discharge Instructions * Discharge Instructions* Ethan Marroquin MD - 03/17/2011 9:00 AM CDT 1. Follow-up Dr. Marroquin's office ([phone]) as needed. 2. Do NOT remove dressing or wash surgical site until Wednesday evening, March 22. Then remove steri-strip and resume normal washing. 3. No body contact activities until 3 weeks after surgery. 4. Avoid excess sun on incision site. 5. Notify Dr. Marroquin's office ([phone]) if scar begins to thicken and raise above the surface or any other concerns about the surgical site. documented in this encounter Progress Notes * Stl Scanning, [facility] - 03/17/2011 4:07 PM CDT documented in this encounter H&P Notes * Stl Scanning, [facility] - 03/17/2011 4:07 PM CDT documented in this encounter OR Notes * Gloria-OP - Yelena Bellamy RN - 03/17/2011 9:09 AM CDT Patient was discharged ambulatory in stable condition. Discharge instructions from physician reviewed with patient's mother prior to discharge and copy provided. * Operative Report - Ethan Marroquin MD - 03/17/2011 9:01 AM CDT [facility] [id number] Pre-operative Diagnosis: subcutaneous mass left christian Post-operative Diagnosis: pilomatrixoma left christian Procedure: excisional biopsy subcutaneous mass left christian (incision length = 10mm) Anesthesia: local by surgeon Surgeon: Ethan Marroquin MD Assistants: none Specimens Removed: subcutaneous mass left christian Estimated Blood Loss: Minimal Complications:none Operation: The patient was placed on the operating room table in the supine position and the head was turned to the right . The previously placed EMLA cream was removed and the left forehead/christian was prepped and draped. The lesion clinically [...] Notes * Scanned Form - Stl Scanning, [facility] - 03/20/2011 10:15 AM CDT * Scanned Form - [facility] Scanning, [facility] - 03/17/2011 4:07 PM CDT * Scanned Form - Stl Scanning, [facility] - 03/17/2011 4:07 PM CDT * Patient Instructions - Stl Scanning, [facility] - 03/17/2011 4:07 PM CDT documented in [...] PATHOLOGY (03/17/2011 10:54 AM CDT) SURGICAL PATHOLOGY ?[facility] ?[address] ? [place], [place] ??[address] ? Patient: ??LYDIA HDEZ ? : ??2005 ? Procedure Date: ??03/17/2011 ? Accession Date: ??03/17/2011 ? Case No: ??[id number] ? Ordering Dr: ??ETHNA MARROQUIN ? Case type SW is performed by [facility], [address] [place] [address], ? [place] [address]; all other case types are performed by [facility] ? [facility], [address] [place], [place] ??[address] ?SURGICAL PATHOLOGY & NON-GYNECOLOGIC CYTOPATHOLOGY REPORT ? DIAGNOSIS ? SKIN, LEFT FACE, EXCISION: ? - PILOMATRICOMA. ? Specimen Description: ? Pilomatrixoma left face. ? Operative Procedure: ? Focal cyst lesion excision. ? Patient Information/Histor y/Diagnosis: ? Pilomatrixoma left face. ? Gross: ? Received in a single container labeled Lydia Hdez, pilomatrixoma ? left face, is a skin ellipse measuring 0.3 x 0.2 cm. A 0.4-cm white nodule ? is subjacent. The specimen is longitudinally bisected and completely ? submitted labeled A1. ? DJG/PJS 03.17.2011 11:23 am ? Microscopic: ? Received are slides labeled [id number], Lydia Hdez. ? Sections of left face identify a [...] FOR JUSTICE VILLEGAS M.D.- 03/18/11 12:09 pm [facility] 03/17/2011 10:5 4 AM CDT Ethan Marroquin MD PATHOLOGY/CYTOLOGY O RDERABLES [facility] CLIA# [id number] [address] [place], [place] [address] documented in this encounter Visit Diagnoses Not on filedocumented in this encounter Active and Recently Administered Medications Care Teams Exceptional Children Teacher Relationship Specialty Start Date End Date Rufina Pike MD [address] [place] [address] PCP - General Pediatrics 02/26/11 documented as of this encounter
== END 2024-10-30 08:13 | disposition home or self-care (01) ==
LOC: CHSIMG 08:14
PROVIDERS: PCP Family Medicine; Visit Provider Orthopaedic Surgery
DX: M25.521 Pain in right elbow (principal)
CPT/HCPCS: 73080